=== PATIENT | female | born 1960 | race Caucasian/White ===

== ENCOUNTER 2017-01-20 08:32 | Outpatient (CLI) ==
[2014-02-06 16:38] VITALS: BMI 22.0
[2017-01-20 08:52] LABS: BASOPHILS # (AUTO) 0.1 K/uL (0-0.2); BASOPHILS % (AUTO) 1.1 % (0.0-3.0); EOSINOPHILS # (AUTO) 0.3 K/ul (0.0-0.7); EOSINOPHILS % (AUTO) 7.5 % (0.0-7.0); HEMATOCRIT 39.5 % (37.0-47.0); HEMOGLOBIN 13.5 g/dl (12.0-16.0); LYMPHOCYTES # (AUTO) 2.1 K/uL (0.60-3.4); LYMPHOCYTES % (AUTO) 46.9 (10.0-50.0); MEAN CORPUSCULAR HEMOGLOBIN 32.2 pg (27.0-31.0); MEAN CORPUSCULAR HGB CONC 34.2 (31.8-35.4); MEAN CORPUSCULAR VOLUME 94.3 fl (81.0-99.0); MONOCYTES # (AUTO) 0.3 K/uL (0.4-2.0); MONOCYTES % (AUTO) 6.2 (0-10); NEUTROPHILS # (AUTO) 1.7 K/ul (2.0-6.9); NEUTROPHILS % (AUTO) 38.3; PLATELET COUNT 207 10^3/uL (140-440); RED BLOOD COUNT 4.19 10^6/ul (4.20-5.40); WHITE BLOOD COUNT 4.52 K/ul (4.6-10.2)
[2017-01-20 09:35] LABS: ALBUMIN 3.6 g/dL (3.4-5.0); ALBUMIN/GLOBULIN RATIO 0.97; ANION GAP 12.1; BILIRUBIN,TOTAL 0.47 mg/dL (0.00-1.20); BUN/CREATININE RATIO 14.1; CALCIUM 9.3 mg/dL (8.2-10.2); CREATININE 0.78 mg/dL (0.60-1.30); POTASSIUM 4.1 mmol/L (3.5-5.10); TOTAL PROTEIN 7.3 g/dL (6.4-8.2)
== END 2017-01-20 08:33 | disposition home or self-care (01) ==
LOC: LAB 08:32
PROVIDERS: ATTEND Nurse Practitioner Family
DX: E78.5 Hyperlipidemia, unspecified (principal); F41.1 Generalized anxiety disorder; I10 Essential (primary) hypertension
CPT/HCPCS: 36415; 80053; 80061; 84443; 85025

== ENCOUNTER 2017-05-13 08:27 | Day surgery (SDC) ==
[2014-02-06 16:38] VITALS: BMI 22.0
[2017-05-13] MEDS ORDERED: VERSED ONE (10:15)
[2017-05-13] MEDS ORDERED: DIPRIVAN 20 ML VIAL IVP ONE (10:15)
[2017-05-13 11:53] VITALS: BP 147/83; TEMP 97.4
--- NOTE | 2017-05-14 07:09 | OP ---
INDICATIONS FOR PROCEDURE: 57-year-old female presents for colonoscopy examination. She has a remote history of colon polyps. Her last colonoscopy was 7 years ago. MEDICATIONS: SEE ANESTHESIA NOTES. PROCEDURE: COLONOSCOPY, SNARE POLYPECTOMY. REPORT: The risks, benefits, alternatives and limitations were discussed in detail with the patient. Informed consent was obtained. After adequate sedation was achieved, a digital rectal exam revealed good tone, no masses. The colonoscope was introduced into the rectum and advanced under direct visual guidance to the cecum. The cecum was identified by the appendiceal orifice and IC valve. In the cecal area there were two 4 to 5 mm diminutive polyps. Both of these were destroyed using a hot snare. I then slowly withdrew the scope in a circumferential manner examining the mucosa quite carefully. I looked on the proximal and distal side of folds and flexures as best as possible. In the ascending colon and beginning at the hepatic flexure , there were two polyps about 5 mm to 6 mm size, both sessile. Both of these were removed by hot snare technique. Withdrawing the scope further revealed an 8 mm sessile polyp in the proximal transverse colon. This was removed by snare technique. In the sigmoid, there was a moderate amount of small mouth diverticula scattered throughout. In the very distal sigmoid there was a diminiutive 3 or 4 mm polyp that I destroyed using a snare. No other abnormalities noted. On retroflex view of the anal canal there was an anal skin tag. The prep was good. The withdrawal time is 16 minutes and 31 seconds. The patient tolerated the procedure well with stable vital signs and pulse oximetry throughout. IMPRESSION: 1. SIX (6) POLYPS REMOVED OR DESTROYED ABOVE. 2. SIGMOID DIVERTICULOSIS. 3. SMALL ANAL SKIN TAG. RECOMMENDATIONS: 1. High fiber diet. 2. Office visit as needed. 3. Await polyp pathology. If everything is benign as expected, I recommend repeat colonoscopy examination again in 3 years, sooner if signs or symptoms would indicate otherwise. CC: KARISSA DIXON, [facility]
== END 2017-05-13 12:00 | disposition home or self-care (01) ==
LOC: SURG 08:27
PROVIDERS: ATTEND Internal Medicine Gastroenterology
DX: Z09 Encounter for follow-up examination after completed treatment for conditions other than malignant neoplasm (principal); Z86.010 Personal history of colon polyps; D12.2 Benign neoplasm of ascending colon; D12.3 Benign neoplasm of transverse colon; K63.5 Polyp of colon; K57.30 Diverticulosis of large intestine without perforation or abscess without bleeding; K64.4 Residual hemorrhoidal skin tags

== ENCOUNTER 2017-06-23 08:37 | Outpatient (CLI) ==
[2014-02-06 16:38] VITALS: BMI 22.0
[2017-06-23 09:07] LABS: BASOPHILS # (AUTO) 0.1 K/uL (0-0.2); EOSINOPHILS # (AUTO) 0.3 K/ul (0.0-0.7); EOSINOPHILS % (AUTO) 6.1 % (0.0-7.0); HEMATOCRIT 38.5 % (37.0-47.0); HEMOGLOBIN 13.2 g/dl (12.0-16.0); IMMATURE GRANULOCYTE % (AUTO) 0.2 % (0.0-5.0); LYMPHOCYTES # (AUTO) 2.2 K/uL (0.60-3.4); LYMPHOCYTES % (AUTO) 44.9 (10.0-50.0); MEAN CORPUSCULAR HEMOGLOBIN 32.3 pg (27.0-31.0); MEAN CORPUSCULAR HGB CONC 34.3 (31.8-35.4); MEAN CORPUSCULAR VOLUME 94.1 fl (81.0-99.0); MONOCYTES # (AUTO) 0.3 K/uL (0.4-2.0); MONOCYTES % (AUTO) 6.7 (0-10); NEUTROPHILS % (AUTO) 41.1; PLATELET COUNT 217 10^3/uL (140-440); RED BLOOD COUNT 4.09 10^6/ul (4.20-5.40); WHITE BLOOD COUNT 4.92 K/ul (4.6-10.2)
[2017-06-23 09:51] LABS: ALBUMIN 3.4 g/dL (3.4-5.0); ALBUMIN/GLOBULIN RATIO 0.83; ANION GAP 12.5; BILIRUBIN,TOTAL 0.45 mg/dL (0.00-1.20); BUN/CREATININE RATIO 14.1; CALCIUM 9.5 mg/dL (8.2-10.2); CHOL/HDL RATIO 4.3 (4.5-5.5); CREATININE 0.78 mg/dL (0.60-1.30); POTASSIUM 4.5 mmol/L (3.5-5.10); TOTAL PROTEIN 7.5 g/dL (6.4-8.2)
== END 2017-06-23 08:38 | disposition home or self-care (01) ==
LOC: LAB 08:37
PROVIDERS: ATTEND Nurse Practitioner Family
DX: E78.5 Hyperlipidemia, unspecified (principal); I10 Essential (primary) hypertension; F41.1 Generalized anxiety disorder; E55.9 Vitamin D deficiency, unspecified
CPT/HCPCS: 36415; 80053; 80061; 82306; 84443; 85025

== ENCOUNTER 2017-07-28 16:33 | Outpatient (CLI) ==
[2014-02-06 16:38] VITALS: BMI 22.0
[2017-07-28 16:44] LABS: FLU INTERNAL QC INTERNAL QC VALID
[2017-07-28 16:45] LABS: RAPID FLU A NEGATIVE (NEGATIVE); RAPID FLU B NEGATIVE (NEGATIVE)
== END 2017-07-28 16:34 | disposition home or self-care (01) ==
LOC: LAB 16:33
PROVIDERS: ATTEND Nurse Practitioner Family
DX: R05 Cough (principal); R52 Pain, unspecified; J02.9 Acute pharyngitis, unspecified; R50.9 Fever, unspecified
CPT/HCPCS: 87651; 87804; 87880

== ENCOUNTER 2017-09-02 13:53 | Outpatient (CLI) ==
[2014-02-06 16:38] VITALS: BMI 22.0
== END 2017-09-02 13:54 | disposition home or self-care (01) ==
LOC: LAB 13:53
PROVIDERS: ATTEND Nurse Practitioner Family
DX: R05 Cough (principal); R50.9 Fever, unspecified
CPT/HCPCS: 87502

== ENCOUNTER 2018-08-27 21:15 | Emergency (ER) ==
[2018-08-27 21:26] VITALS: BP 167/102; TEMP 98.7; BMI 22.1
[2018-08-27] MEDS ORDERED: DUONEB NEB STA (21:40)
--- NOTE | 2018-08-27 21:40 | ED.PDOC ---
General ED Provider: Dr. MAXIM JACOBSON MD Chief Complaint: Cough Stated Complaint: cough pleuritic right sided pain. . Time Seen by Physician: 21:25 Mode of Arrival: Walk-In Information Source: Patient, Family Exam Limitations: No limitations Primary Care Provider: KARISSA DIXON Nursing and Triage Documentation Reviewed and Agree: Yes Does patient meet sepsis criteria?: No If yes, has appropriate treatment been initiated?: Yes System Inflammatory Response Syndrome: Not Applicable Sepsis Protocol: For patient's 13 years and over: Temp is 96.8 and below OR 101 and greater Pulse >90 BPM Resp >20/minute Acutely Altered Mental Status Are patient's symptoms suggestive of a new infection, such as: -Pneumonia -Skin, Soft Tissue -Endocarditis -UTI -Bone, Joint Infection -Implantable Device -Acute Abdominal Infection -Wound Infection -Meningitis -Blood Stream Catheter Infection -Unknown Respiratory Complaint Exam - Respiratory Complaint/Exam Symptoms Are: Still present Timing: Constant Initial Severity: Mild Current Severity: Mild Location: Chest Aggravating: Reports: Deep breaths Alleviating: Reports: Upright position Associated Signs and Symptoms: Reports: Chest pain Related Surgical History: Reports: None Pulmonary Embolism Risk Factors: None Cardiac Risk Factors: Reports: Smoking Pseudomonas Risk Factors: Reports: None Tuberculosis Risk Factors: Reports: None Home Oxygen Use: No Recent Stress Test: No Recent Echo/LV Function: No Current Antibiotic Use: Yes (doxy 1 week) Respiratory Distress: Mild Inadequate Respiratory Effort: No Dysphagia Present: No Stridor Present: No JVD Present: No Grunting Respirations: No Kussmaul Respirations: No Differential Diagnoses: COPD Exacerbation, Pneumonia Review of Systems - Review Of Systems Constitutional: Reports: No symptoms Eyes: Reports: No symptoms Ears, Nose, Mouth, Throat: Reports: No symptoms Respiratory: Reports: No symptoms Cardiac: Reports: Chest pain (right sided with inspiration) GI: Reports: No symptoms : Reports: No symptoms Musculoskeletal: Reports: No symptoms Skin: Reports: No symptoms Neurological: Reports: No symptoms Endocrine: Reports: No symptoms Hematologic/Lymphatic: Reports: No symptoms All Other Systems: Reviewed and Negative Past Medical History - Past Medical History Endocrine: Reports: None Cardiovascular: Reports: None Respiratory: Reports: COPD Hematological: Reports: None Gastrointestinal: Reports: None Genitourinary: Reports: None Neuro/Psych: Reports: None Musculoskeletal: Reports: None Cancer: Reports: None Last Menstrual Period: 1993 - Surgical History General Surgical History: Reports: None - Family History Family History: Reports: None - Social History Smoking Status: Current every day smoker, Light tobacco smoker Hx Substance Use: No Alcohol Screening: None - Immunizations Tetanus Shot up to Date: No (unsure) Physical Exam - Physical Exam Appearance: Thin Ill-appearing: Mild Pain Distress: None Eyes: VANGIE, EOMI, Conjunctiva clear ENT: Ears normal, Nose normal, Oropharynx normal Respiratory: Airway patent, Breath sounds clear, Breath sounds equal, Respirations nonlabored Cardiovascular: RRR, Pulses normal, No rub, No murmur GI/: Soft, Nontender, No masses, Bowel sounds normal, No Organomegaly Musculoskeletal: Normal strength, ROM intact, No edema, No calf tenderness Skin: Warm, Dry, Normal color Neurological: Sensation intact Psychiatric: Affect appropriate, Mood appropriate Critical Care Note - Critical Care Note Total Time (mins): 0 Course - Course Hematology/Chemistry: 08/27/18 21:50 Orders, Labs, Meds: Lab Review 08/27/18 21:50 WBC 8.48 RBC 4.09 L Hgb 13.1 Hct 38.7 MCV 94.6 MCH 32.0 H MCHC 33.9 RDW Coeff of Michelle 11.9 Plt Count 221 Immature Gran % (Auto) 0.2 Neut % (Auto) 46.3 Lymph % (Auto) 39.2 [place] % (Auto) 6.1 Eos % (Auto) 7.5 H Baso % (Auto) 0.7 Immature Gran # (Auto) 0.0 Neut # (Auto) 3.9 Lymph # (Auto) 3.3 [place] # (Auto) 0.5 Eos # (Auto) 0.6 Baso # (Auto) 0.1 Orders Category Date Time Status NEBULIZER TREATMENT Stat CARDIO 08/27/18 21:40 Completed CBC W/ AUTO DIFF Stat LAB 08/27/18 21:50 Completed Ipratropium/Albuterol Neb [Duoneb] MEDS 08/27/18 21:40 Discontinued 1 vial NEB ONCE STA Methylprednisolone Sod Succ/Pf [Solu-Medrol 125 mg] MEDS 08/27/18 22:41 Discontinued 125 mg IM ONCE STA CXR [CHEST, 2 VIEWS PA & LAT] Stat RADS 08/27/18 21:39 Completed Medications Discontinued Medications Generic Name Dose Route Start Last Admin Trade Name Freq PRN Reason Stop Dose Admin Albuterol/Ipratropium 1 vial 08/27/18 21:40 08/27/18 21:50 Duoneb NEB 08/27/18 21:41 1 vial ONCE STA Administration Methylprednisolone Sodium Succinate 125 mg 08/27/18 22:41 08/27/18 22:49 Solu-Medrol 125 Mg IM 08/27/18 22:42 125 mg ONCE STA Administration Vital Signs: Temp Pulse Resp BP Pulse Ox 08/27/18 21:17 98.7 F 89 20 167/102 H 94 L Departure - Departure Time of Disposition: 23:38 Disposition: HOME SELF-CARE Discharge Problem: Tracheobronchitis Instructions: Acute Bronchitis (ED) Condition: Stable Pt referred to PMD for follow-up: Yes IPMP verified?: No Prescriptions: Prednisone 20 mg PO DAILYWM 5 Days #5 tablet NS Allergies/Adverse Reactions: Allergies lisinopril Allergy (Mild, Verified 08/27/18 21:26) Cough Home Medications: Ambulatory Orders Clonidine HCl 0.1 mg PO DAILY 08/27/18 Prednisone 20 mg PO DAILYWM 5 Days #5 tablet NS 08/27/18 Transfer Form Completed: No Disposition Discussed With: Patient, Family
--- NOTE | 2018-08-27 22:36 | DI ---
EXAM: Two-view chest HISTORY: Cough COMPARISON: None. FINDINGS: The heart is normal in size. Atherosclerotic changes are seen involving the aortic arch. The lungs are hyperinflated with benign granulomatous change. There is minimal atelectasis or scarri ng within the lingula. IMPRESSION: Emphysematous changes with benign granulomatous change. Minimal atelectasis versus scarring seen within the lingula
[2018-08-27] MEDS ORDERED: SOLU-MEDROL 125 MG IM STA (22:41)
== END 2018-08-27 23:51 | disposition home or self-care (01) ==
LOC: ED 21:15
DX: J40 Bronchitis, not specified as acute or chronic (principal); F17.210 Nicotine dependence, cigarettes, uncomplicated
CPT/HCPCS: 36415; 85025; 94640; 96372; 99283

== ENCOUNTER 2018-10-13 19:03 | Emergency (ER) | payer MEDICAID, OTHER ==
[2018-10-13 19:08] VITALS: TEMP 98.2; BMI 22.9
[2018-10-13] MEDS ORDERED: SODIUM CHLORIDE 1,000 ML IV STA (19:12)
--- NOTE | 2018-10-13 19:21 | ED.PDOC ---
General ED Provider: Dr. RAGHU CHANDRA Chief Complaint: Back Pain Stated Complaint: Patient is a 58 year old female with a history of COPD who comes to the ER with complains of mid back pain that started yesterday went away then today started having pain to left side and left chest tightness. She feels like she has to take deep breaths frequently. Denies any vomiting or diaphoresis but has been nauseated. Time Seen by Physician: 19:15 Mode of Arrival: Walk-In Information Source: Patient Exam Limitations: No limitations Primary Care Provider: KARISSA DIXON Nursing and Triage Documentation Reviewed and Agree: Yes Does patient meet sepsis criteria?: No System Inflammatory Response Syndrome: Not Applicable Sepsis Protocol: For patient's 13 years and over: Temp is 96.8 and below OR 101 and greater Pulse >90 BPM Resp >20/minute Acutely Altered Mental Status Are patient's symptoms suggestive of a new infection, such as: -Pneumonia -Skin, Soft Tissue -Endocarditis -UTI -Bone, Joint Infection -Implantable Device -Acute Abdominal Infection -Wound Infection -Meningitis -Blood Stream Catheter Infection -Unknown Cardiovascular Complaint Exam - Chest Pain Complaint/Exam Onset: Gradual Duration: 1 day Symptoms Are: Still present Timing: Intermittent Initial Severity: Severe Current Severity: None Location: Reports: Left lateral Pain Radiates: Reports: Back Character: Reports: Tightness, Sharp Aggravating: Reports: None Alleviating: Reports: Spontaneous resolution Associated Signs and Symptoms: Reports: Nausea. Denies: Diaphoresis, Vomiting, Fever, Palpitations, Cough, Hemoptysis, Back pain, Abdominal pain, Dizziness, Short of air, Calf pain, Calf swelling Related History: Denies: Similar episode Related Surgical History: Reports: None History of Healthcare-Acquired Pneumonia: Reports: No AMI/ACS Risk Factors: Reports: Family history, Smoking Recent Stress Test: No Recent Echo/LV Function: No JVD Present: No Subcutaneous Emphysema Present: No Diminshed Breath Sounds: No Reproducible Chest Wall Pain: No Bilateral Pulses Present: No Unequal Pulses Noted: No Review of Systems - Review Of Systems Constitutional: Reports: No symptoms Eyes: Reports: No symptoms Ears, Nose, Mouth, Throat: Reports: No symptoms Respiratory: Reports: No symptoms Cardiac: Reports: Chest pain GI: Reports: Nausea : Reports: No symptoms Musculoskeletal: Reports: Back pain Skin: Reports: No symptoms Neurological: Reports: Anxiety Endocrine: Reports: No symptoms Hematologic/Lymphatic: Reports: No symptoms All Other Systems: Reviewed and Negative Past Medical History - Past Medical History Endocrine: Reports: None Cardiovascular: Reports: Hypertension Respiratory: Reports: COPD Hematological: Reports: None Gastrointestinal: Reports: None Genitourinary: Reports: Kidney stones Neuro/Psych: Reports: Anxiety, Depression Musculoskeletal: Reports: Arthritis Cancer: Reports: Unknown Last Menstrual Period: none - Surgical History General Surgical History: Reports: Hysterectomy, Appendectomy, Other (blood clot on brain 1991) - Family History Family History: Reports: Heart - Social History Smoking Status: Current every day smoker, Light tobacco smoker Hx Substance Use: No Alcohol Screening: None Physical Exam - Physical Exam Appearance: Well-appearing, No pain distress, Well-nourished Ill-appearing: None Pain Distress: None Eyes: VANGIE, EOMI, Conjunctiva clear ENT: Ears normal, Nose normal, Oropharynx normal Respiratory: Airway patent, Breath sounds clear, Breath sounds equal, Respirations nonlabored Cardiovascular: RRR, Pulses normal, No rub, No murmur GI/: Soft, Nontender, No masses, Bowel sounds normal, No Organomegaly Musculoskeletal: Normal strength, ROM intact, No edema, No calf tenderness Skin: Warm, Dry, Normal color Neurological: Sensation intact, Motor intact, Reflexes intact, Cranial nerves intact, Alert, Oriented Psychiatric: Affect appropriate, Anxious Interpretation - EKG Interpretation Time of EKG #1: 19:25 Rate: Normal Rhythm: Sinus Moore: Left ST Segment: Normal Interpretation: old septal infact Critical Care Note - Critical Care Note Total Time (mins): 35 Course - Course Hematology/Chemistry: 10/13/18 19:23 10/13/18 19:23 Orders, Labs, Meds: Lab Review 10/13/18 10/13/18 10/13/18 19:23 19:23 19:23 WBC 5.91 RBC 3.63 L Hgb 11.8 L Hct 34.5 L MCV 95.0 MCH 32.5 H MCHC 34.2 RDW Coeff of Michelle 12.7 Plt Count 196 Immature Gran % (Auto) 0.2 Neut % (Auto) 38.4 Lymph % (Auto) 44.5 [place] % (Auto) 8.8 Eos % (Auto) 7.3 H Baso % (Auto) 0.8 Immature Gran # (Auto) 0.0 Neut # (Auto) 2.3 Lymph # (Auto) 2.6 [place] # (Auto) 0.5 Eos # (Auto) 0.4 Baso # (Auto) 0.1 D-Dimer (Manual) 350.19 Sodium 141.6 Potassium 4.10 Chloride 108.3 H Carbon Dioxide 26.0 Anion Gap 11.40 BUN 10.1 Creatinine 0.64 Estimated GFR (MDRD) 95.00 BUN/Creatinine Ratio 15.78 Glucose 118.1 H Calcium 9.11 Total Bilirubin 0.28 AST 56.0 H ALT 55.9 H Alkaline Phosphatase 78.8 Total Creatine Kinase 48.8 Troponin I < 0.012 Total Protein 7.34 Albumin 3.94 Globulin 3.40 Albumin/Globulin Ratio 1.15 10/13/18 22:21 WBC RBC Hgb Hct MCV MCH MCHC RDW Coeff of Michelle Plt Count Immature Gran % (Auto) Neut % (Auto) Lymph % (Auto) [place] % (Auto) Eos % (Auto) Baso % (Auto) Immature Gran # (Auto) Neut # (Auto) Lymph # (Auto) [place] # (Auto) Eos # (Auto) Baso # (Auto) D-Dimer (Manual) Sodium Potassium Chloride Carbon Dioxide Anion Gap BUN Creatinine Estimated GFR (MDRD) BUN/Creatinine Ratio Glucose Calcium Total Bilirubin AST ALT Alkaline Phosphatase Total Creatine Kinase Troponin I < 0.012 Total Protein Albumin Globulin Albumin/Globulin Ratio Orders Category Date Time Status EKG-(ED ONLY) Stat CARDIO 10/13/18 19:12 Completed ED INFRASTRUCTURE ADMINISTRATOR APPLIED .ONCE EMERGENCY 10/13/18 19:12 Active ED IV/MEDIPORT/POWERPORT .ONCE EMERGENCY 10/13/18 19:12 Active CBC W/ AUTO DIFF Stat LAB 10/13/18 19:23 Completed COMPREHENSIVE METABOLIC PANEL Stat LAB 10/13/18 19:23 Completed CREATINE KINASE Stat LAB 10/13/18 19:23 Completed D-DIMER Stat LAB 10/13/18 19:23 Completed TROPONIN I Stat LAB 10/13/18 19:23 Completed TROPONIN I Stat LAB 10/13/18 22:21 Completed 0.9 % Sodium Chloride [Saline Flush] MEDS 10/13/18 19:12 Ordered 1 syr IVF PRN PRN Sodium Chloride 0.9% [Sodium Chloride] 1,000 ml MEDS 10/13/18 19:12 Active IV 125 mls/hr CHEST, 1V AP ONLY Stat RADS 10/13/18 19:12 Completed Medications Generic Name Dose Route Start Last Admin Trade Name Freq PRN Reason Stop Dose Admin Sodium Chloride 1,000 mls @ 125 mls/hr 10/13/18 19:12 10/13/18 19:29 Sodium Chloride IV 10/14/18 03:11 125 mls/hr .Q8H STA Administration Sodium Chloride 1 syr 10/13/18 19:12 Saline Flush IVF PRN PRN To flush IV Vital Signs: Temp Pulse Resp BP Pulse Ox 10/13/18 20:53 67 20 96 10/13/18 20:06 72 22 152/93 H 96 10/13/18 19:03 98.2 F 79 18 163/91 H 95 HUGH Risk Score Age >/= 65: No >/= 3 CAD Risk Factors: No Known CAD (Stenosis >/= 50%): No ASA Use in Past 7 Days: No Severe Angina (>/= 2 episodes in 24 hours): Yes EKG ST Changes >/= 0.5mm: No Postive Cardiac Marker: No HUGH Total Score: 1 HUGH Risk Score: Risk Score Odds of by 30D 0 0.1 (0.1-0.2) 1 0.3 (0.2-0.3) 2 0.4 (0.3-0.5) 3 0.7 (0.6-0.9) 4 1.2 (1.0-1.5) 5 2.2 (1.9-2.6) 6 3.0 (2.5-3.6) 7 4.8 (3.8-6.1) Departure - Departure Time of Disposition: 23:26 Disposition: HOME SELF-CARE Discharge Problem: Backache, Chest wall pain Instructions: Costochondritis (ED) Condition: Stable Pt referred to PMD for follow-up: Yes IPMP verified?: No Additional Instructions: Take pain medications as prescribed Follow up with PCP in 3 days Prescriptions: Tramadol HCl [Ultram] 50 mg PO Q6H PRN #10 tablet PRN Reason: Severe Pain Allergies/Adverse Reactions: Allergies lisinopril Allergy (Mild, Verified 10/13/18 19:08) Cough Home Medications: Ambulatory Orders Clonidine HCl 0.1 mg PO DAILY 08/27/18 Tramadol HCl [Ultram] 50 mg PO Q6H PRN #10 tablet 10/13/18 Disposition Discussed With: Patient, Family
[2018-10-13 20:08] VITALS: BP 152/93
--- NOTE | 2018-10-13 21:01 | DI ---
EXAM: One-view chest HISTORY: Chest pain TECHNIQUE: Single frontal view the chest was obtained. Comparison 08/27/2018. FINDINGS: The heart is normal size. Lungs are clear. The pulmonary vasculature appears normal. Th e costophrenic angles are sharp. IMPRESSION: No active cardiopulmonary disease.
== END 2018-10-13 23:00 | disposition home or self-care (01) ==
LOC: ED 19:03
DX: M54.9 Dorsalgia, unspecified (principal); R07.89 Other chest pain; F17.210 Nicotine dependence, cigarettes, uncomplicated; I10 Essential (primary) hypertension; J44.9 Chronic obstructive pulmonary disease, unspecified
CPT/HCPCS: 36415; 80053; 82550; 84484; 85025; 85379; 93005; 93010; 96360; 99283

== ENCOUNTER 2018-10-21 10:03 | Outpatient (CLI) ==
--- NOTE | 2018-10-21 10:57 | DI ---
EXAM: Three views of the left wrist. History: Left wrist pain. Findings: No acute fracture or dislocation. No abnormal calcifications or radiopaque foreign bodies . Joint spaces are relatively preserved. No erosive osseous changes. Impression: Unremarkable exam
== END 2018-10-21 10:04 | disposition home or self-care (01) ==
LOC: RAD 10:03
PROVIDERS: ATTEND Nurse Practitioner Family
DX: M25.532 Pain in left wrist (principal)

== ENCOUNTER 2019-01-22 08:17 | Outpatient (CLI) | END 2019-01-22 08:18 | disposition home or self-care (01) | LOC: LAB 08:17 | PROVIDERS: ATTEND Nurse Practitioner Family | DX: D64.9 Anemia, unspecified (principal); F41.1 Generalized anxiety disorder; I10 Essential (primary) hypertension; E55.9 Vitamin D deficiency, unspecified | CPT/HCPCS: 36415; 80053; 80061; 82306; 85025 ==

== ENCOUNTER 2019-02-03 08:33 | Outpatient (CLI) ==
--- NOTE | 2019-02-03 11:01 | MRI ---
EXAM: MRI left wrist without contrast. HISTORY: Hit lateral wrist 4 months ago. Knot and redness on lateral wrist. Pain and fall. Painfu l abduction of thumb. No left wrist surgery reported.. TECHNIQUE: Using a local extremity coil on a high field strength magnet multiplanar multisequence MR I was performed of the left wrist without intravenous or intra-articular gadolinium contrast.. COMPARISON: Three-view plain film examination left wrist 10/21/2018 FINDINGS: The alignment of the left wrist shows no dislocation. Minimal dorsal subluxation of the l eft distal ulna with respect to the sigmoid notch. Wrist held in pronation. No scapholunate or luno triquetral joint space widening. No bone erosions. There is some confluent bone marrow edema over t he radial styloid. Somewhat linear low T1 signal intensity corresponding which may reflect an area o f healing nondisplaced fracture with bone marrow contusion. There is additionally subchondral remode ling with cyst formation eccentric over the ulnar sided aspect of the proximal lunate. Mild radiocar pal joint osteoarthrosis. Mild osteoarthrosis scaphoid trapezium trapezoid articulation and first ca rpometacarpal joint as well as piso triquetral articulation. Trace fluid left distal radioulnar join t. Central triangular fibrocartilage disc grossly intact. The carpal tunnel and its contents as well as overlying flexor retinaculum intact. Some mild edema a long the carpal tunnel.. There is tenosynovitis extensor compartment I. Associated tendinosis . Ad ditionally, at the radiocarpal joint space level there is high-grade partial/near full-thickness tear ing of both the extensor pollicis brevis and abductor pollicis longus tendons. I do not see definiti ve tendinous retraction subsequent to full-thickness disruption. Extensor compartments I I - inta ct. Prominent volar radial recess verse tiny synovial/ganglion cyst formation. IMPRESSION: Confluent bone marrow edema over the radial styloid. Appearance suspicious for subacute healing nondisplaced fracture with bone marrow contusion. Subchondral remodeling with cyst formation eccentric over the ulnar sided aspect of the proximal bryce te. Correlate clinically for ulnocarpal abutment. Osteoarthrosis as described. Mild edema along the carpal tunnel. Correlate clinically for signs/symptoms of carpal tunnel syndrom e. Extensor compartment I tenosynovitis with associated tendinosis. At the radiocarpal joint space leve l there is high- grade partial/near full-thickness tearing of both the extensor pollicis brevis and abductor pollicis longus tendons. No definitive tendinous retraction subsequent to full-thickness disruption.
== END 2019-02-03 08:34 | disposition home or self-care (01) ==
LOC: RAD 08:33
PROVIDERS: ATTEND Nurse Practitioner Family
DX: M25.532 Pain in left wrist (principal); G89.29 Other chronic pain; M25.572 Pain in left ankle and joints of left foot; Z87.81 Personal history of (healed) traumatic fracture

== ENCOUNTER 2024-10-10 12:54 | Inpatient (IN) ==
[2024-10-10 13:38] LABS: ABG O2 HGB 86.4 % (95-100); ABG PH 7.36 (7.35-7.45); BEecf -3.4 (-2.0-3.0); COHb 4.3 (0.5-1.5); MetHb 1.1 (0-1.5); TCO2 23.2 (19-24); sO2 84.1 % (94-98); tHb 14.2 g/dl (11.7-17.4)
[2024-10-10] MEDS: DECADRON IVP ONE (13:52)
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
[2024-10-10] MEDS: DUONEB NEB STA (13:54)
[2024-10-10 14:05] LABS: OCCULT BLOOD SAMPLE 1 POSITIVE (NEGATIVE)
[2024-10-10 14:17] LABS: BASOPHILS % (AUTO) 0.2 % (0.0-3.0); EOSINOPHILS % (AUTO) 0.2 % (0.0-7.0); HEMATOCRIT 43.5 % (37.0-47.0); HEMOGLOBIN 14.2 g/dl (12.0-16.0); IMMATURE GRANULOCYTE % (AUTO) 0.3 % (0.0-5.0); LYMPHOCYTES % (AUTO) 15.9 (10.0-50.0); MEAN CORPUSCULAR HEMOGLOBIN 31.9 pg (27.0-31.0); MEAN CORPUSCULAR HGB CONC 32.6 (31.8-35.4); MEAN CORPUSCULAR VOLUME 97.8 fl (81.0-99.0); MONOCYTES # (AUTO) 0.4 K/uL (0.4-2.0); MONOCYTES % (AUTO) 7.3 (0-10); NEUTROPHILS # (AUTO) 4.6 K/ul (2.0-6.9); NEUTROPHILS % (AUTO) 76.1 % (42.2-75.2); PLATELET COUNT 134 10^3/uL (140-440); RDW COEFFICIENT OF VARIATION 12.7 % (11.6-14.8); RED BLOOD COUNT 4.45 10^6/ul (4.20-5.40); WHITE BLOOD COUNT 5.99 K/ul (4.6-10.2)
[2024-10-10 14:27] LABS: ALANINE AMINOTRANSFERASE 17.8 U/L (0-35); ALBUMIN 3.9 g/dL (3.5-5.0); ALKALINE PHOSPHATASE 67.5 U/L (53-141); ASPARTATE AMINO TRANSFERASE 34.5 U/L (14-36); BILIRUBIN,TOTAL 0.26 mg/dL (0.2-1.3); BLOOD UREA NITROGEN 26.6 mg/dL (7-17); CALCIUM 9.07 mg/dL (8.4-10.2); CARBON DIOXIDE 28.1 mmol/L (22-30.0); CHLORIDE 102.6 mmol/L (98-107); CREATININE 1.18 mg/dL (0.60-1.30); GLUCOSE 102.2 mg/dL (74-106); POTASSIUM 4.31 mmol/L (3.5-5.1); TOTAL PROTEIN 7.08 g/dL (6.3-8.2)
[2024-10-10] MEDS: VISIPAQUE 320 MG/ML 100ML IVP ONE (14:40)
--- NOTE | 2024-10-10 15:49 | CT ---
EXAM: CT ABDOMEN AND PELVIS WITH CONTRAST HISTORY: Diarrhea and rectal bleeding. TECHNIQUE: Contiguous axial tomographic sections were obtained from the dome of the diaphragm through the ischial tuberosities following the administration of iodinated intravenous contrast. Coronal and sagittal reformats were then performed. Automatic exposure control was utilized for dose reduction technique. COMPARISON: None. FINDINGS: LOWER CHEST: Faint micronodular tree-in-bud infiltrates at the right lung base suggesting infectious or inflammatory etiology. There is pectus excavatum deformity. LIVER: There is abnormal diffuse hepatic steatosis. No focal lesion is identified. GALLBLADDER: Nondependent polypoid thickening of the fundus of the gallbladder wall anteriorly measur ing 9 x 5 mm, indeterminate. No evidence of acute or chronic cholecystitis. BILIARY: No intrahepatic or extrahepatic biliary ductal dilatation. PANCREAS: Normal contour and attenuation without focal lesion. Normal caliber main pancreatic duct. SPLEEN: Punctate calcifications in the spleen from previous granulomatous disease. Normal size and co ntour. ADRENALS: Normal size and shape without nodularity. KIDNEYS: Multiple low-density subcentimeter foci are seen in the kidneys, too small to characterize b y CT but statistically benign. Excretion of contrast material into the collecting systems bilaterally . No urinary obstruction. Contrast distal right ureter and urinary bladder. VASCULATURE: Heavy atheromatous calcified noncalcified disease of the abdominal aorta. There is infr arenal ectasia measuring 2.5 cm. High-grade stenosis at the ALY origin suggested. Remaining branch vessels of the abdominal aorta are without significant stenosis. LYMPH NODES: No pathologically enlarged lymph nodes by CT size criteria. PERITONEUM/MESENTERY: No free fluid, free air or mesenteric inflammatory change. No loculated fluid c ollection. BOWEL: No bowel obstruction. The appendix is not seen and therefore not evaluated. No inflammatory ch anges are seen in the right lower quadrant to suggest acute appendicitis. There is severe long segme nt colonic wall thickening beginning at the splenic flexure and extending through the mid to distal s igmoid consistent with long segment colitis. Mild pericolonic stranding. The colon proximal to that level appears unremarkable. URINARY BLADDER: There is mild diffuse generalized urinary bladder wall thickening concerning for cys titis. REPRODUCTIVE: Suspect prior hysterectomy. MUSCULOSKELETAL: No acute bony abnormalities. IMPRESSION: 1. Abnormal exam. Long segment severe colonic wall thickening from the splenic flexure through the m id to distal sigmoid consistent with colitis. Differential considerations include infectious, inflamm atory, and ischemic etiologies. Please correlate clinically. Significant atherosclerotic disease of t he abdominal aorta and iliacs as well as branch vessel origins without evidence of gross SMA occlusio n. The ALY does appear stenotic at its origin but is otherwise patent beyond that. Consider correlat ion with serum lactate level as clinically warranted. No evidence of pneumatosis or portal venous ga s. 2. Focal nodular anterior gallbladder wall thickening possibly polyp, gallbladder wall malignancy not excluded. RECOMMEND further evaluation with dedicated routine outpatient right upper quadrant ultra sound. If indeterminate or not well seen by ultrasound, recommend MRI and/or general surgical referr al electively. 3. Faint infectious or inflammatory infiltrate right lung base. 4. Diffuse hepatic steatosis. 5. Mild generalized bladder wall thickening suggesting mild cystitis. Correlate clinically. All CT scans are performed using dose optimization techniques as appropriate to the performed exam an d include at least one of the following: Automated exposure control, adjustment of the mA and/or kV according t o size, and the use of iterative reconstruction technique.
--- NOTE | 2024-10-10 15:50 | DI ---
EXAM: CHEST RADIOGRAPHS TECHNIQUE: Two views, PA and lateral. HISTORY: Shortness of breath COMPARISON: 07/29/2023 IMPRESSION: The cardiomediastinal silhouette and pulmonary vasculature are grossly unremarkable. Ther e is hyperinflation of the lungs and flattening of the hemidiaphragms consistent with COPD. No focal infiltrate, effusion, or pneumothorax is identified. Left lateral mid lung benign calcified granuloma noted. Multiple EKG leads and clips overlying obscure the chest. Remote left rib fractures noted.
[2024-10-10 16:24] LABS: OCCULT BLOOD SAMPLE 2 POSITIVE (NEGATIVE); OCCULT BLOOD SAMPLE 3 POSITIVE (NEGATIVE)
[2024-10-10 16:26] LABS: BILIRUBIN,URINE Negative (NEGATIVE); CLARITY,URINE Clear (CLEAR); COLOR,URINE Yellow (YELLOW); GLUCOSE, URINE (UA) Negative (NEGATIVE); KETONES,URINE Negative (NEGATIVE); LEUKOCYTE ESTERASE ,URINE Negative (NEGATIVE); NITRITE,URINE Negative (NEGATIVE); PROTEIN,URINE 2+ (NEGATIVE); SQUAMOUS EPITHELIAL CELL,UR NOT PRESENT (0-5); URINE, BLOOD Trace-lysed (NEGATIVE); UROBILINOGEN,URINE 0.2 (0.2)
[2024-10-10 17:30] LABS: SARS COV-2 RNA RAPID NAAT NEGATIVE (NEGATIVE)
[2024-10-10] MEDS: LACTATED RINGERS 1,000 ML IV SCH (18:12)
[2024-10-10] MEDS: DOXYCYCLINE HYCLATE PO SCH (18:19)
[2024-10-10] MEDS: ROCEPHIN 1 GM/50 ML D5W 1 GM/50 ML BAG IV SCH (18:21)
[2024-10-10 18:23] VITALS: BMI 19.5
[2024-10-10] MEDS: PRAVACHOL PO SCH (20:51)
[2024-10-10] MEDS: FLAGYL 500 MG/100 ML 500 MG/100 ML BAG IV SCH (20:52)
[2024-10-10] MEDS: SOLU-MEDROL 40 MG IVP SCH (21:08)
[2024-10-11 05:42] LABS: BASOPHILS % (AUTO) 0.4 % (0.0-3.0); HEMATOCRIT 38.3 % (37.0-47.0); HEMOGLOBIN 12.6 g/dl (12.0-16.0); LYMPHOCYTES # (AUTO) 0.6 K/uL (0.60-3.4); LYMPHOCYTES % (AUTO) 22.7 (10.0-50.0); MEAN CORPUSCULAR HEMOGLOBIN 31.7 pg (27.0-31.0); MEAN CORPUSCULAR HGB CONC 32.9 (31.8-35.4); MEAN CORPUSCULAR VOLUME 96.5 fl (81.0-99.0); MONOCYTES # (AUTO) 0.1 K/uL (0.4-2.0); MONOCYTES % (AUTO) 3.8 (0-10); NEUTROPHILS # (AUTO) 1.9 K/ul (2.0-6.9); NEUTROPHILS % (AUTO) 73.1 % (42.2-75.2); PLATELET COUNT 122 10^3/uL (140-440); RDW COEFFICIENT OF VARIATION 12.7 % (11.6-14.8); RED BLOOD COUNT 3.97 10^6/ul (4.20-5.40); WHITE BLOOD COUNT 2.64 K/ul (4.6-10.2)
[2024-10-11 05:53] LABS: ALANINE AMINOTRANSFERASE 16.9 U/L (0-35); ALBUMIN 3.34 g/dL (3.5-5.0); ASPARTATE AMINO TRANSFERASE 36.2 U/L (14-36); BILIRUBIN,TOTAL 0.2 mg/dL (0.2-1.3); BLOOD UREA NITROGEN 23.7 mg/dL (7-17); CALCIUM 8.71 mg/dL (8.4-10.2); CARBON DIOXIDE 25.8 mmol/L (22-30.0); CHLORIDE 102.9 mmol/L (98-107); CREATININE 0.89 mg/dL (0.60-1.30); GLUCOSE 135.8 mg/dL (74-106); MAGNESIUM 1.65 mg/dL (1.6-2.3); POTASSIUM 4.66 mmol/L (3.5-5.1); SODIUM 133.3 mmol/L (134.5-145); TOTAL PROTEIN 6.16 g/dL (6.3-8.2)
[2024-10-11] MEDS: TOPROL XL PO SCH (08:21)
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
[2024-10-11] MEDS: DUONEB NEB PRN (20:42)
[2024-10-11] MEDS: XANAX PO PRN (20:49)
[2024-10-11] MEDS: PRAVACHOL PO SCH (20:49)
[2024-10-12 05:21] LABS: HEMATOCRIT 37.1 % (37.0-47.0); HEMOGLOBIN 12.2 g/dl (12.0-16.0); IMMATURE GRANULOCYTE % (AUTO) 0.4 % (0.0-5.0); LYMPHOCYTES # (AUTO) 0.7 K/uL (0.60-3.4); LYMPHOCYTES % (AUTO) 13.5 (10.0-50.0); MEAN CORPUSCULAR HEMOGLOBIN 32.3 pg (27.0-31.0); MEAN CORPUSCULAR HGB CONC 32.9 (31.8-35.4); MEAN CORPUSCULAR VOLUME 98.1 fl (81.0-99.0); MONOCYTES # (AUTO) 0.3 K/uL (0.4-2.0); MONOCYTES % (AUTO) 5.2 (0-10); NEUTROPHILS # (AUTO) 3.9 K/ul (2.0-6.9); NEUTROPHILS % (AUTO) 80.9 % (42.2-75.2); PLATELET COUNT 129 10^3/uL (140-440); RDW COEFFICIENT OF VARIATION 12.7 % (11.6-14.8); RED BLOOD COUNT 3.78 10^6/ul (4.20-5.40); WHITE BLOOD COUNT 4.82 K/ul (4.6-10.2)
[2024-10-12 05:36] LABS: ALANINE AMINOTRANSFERASE 16.7 U/L (0-35); ALBUMIN 3.15 g/dL (3.5-5.0); ALKALINE PHOSPHATASE 50.3 U/L (53-141); ASPARTATE AMINO TRANSFERASE 31.3 U/L (14-36); BILIRUBIN,TOTAL 0.13 mg/dL (0.2-1.3); BLOOD UREA NITROGEN 29.5 mg/dL (7-17); CALCIUM 8.51 mg/dL (8.4-10.2); CARBON DIOXIDE 25.6 mmol/L (22-30.0); CHLORIDE 105.7 mmol/L (98-107); CREATININE 0.89 mg/dL (0.60-1.30); GLUCOSE 123.1 mg/dL (74-106); POTASSIUM 4.39 mmol/L (3.5-5.1); TOTAL PROTEIN 5.9 g/dL (6.3-8.2)
--- NOTE | 2024-10-12 11:59 | PCM.PROG ---
Date/Time Seen Date Seen by Provider: 10/12/24 Time Seen by Provider: 08:45 Provider [facility] Chief Complaint Chief Complaint: HYPOXEMIA, COLITIS, COPD Subjective Subjective: Patient states she is breathing better today. Still requiring oxygen. Had been weaned to RA but sat dropped into the 80s while eating breakfast. Placed back on 1L. Sat staying around 93%. No further episodes of diarrhea. Objective Appearance: Positive No Apparent Distress and Alert and Oriented x3 Chest/Lungs: Positive Symmetrical With Equal Breath Sounds and Wheezes (mild expiratory, diminished) Heart: Positive RRR and Pulses Normal GI/: Positive Soft, Nontender, Bowel Sounds Normal and No Distention Musculoskeletal: Positive Not Examined Neurological: Positive Sensation Intact, Motor intact, Alert and Oriented Vital Signs Vital Signs: Vital Signs: Last 24 Hours 10/11/24 12:51 10/11/24 14:00 10/11/24 14:00 Temperature 97.2 F L Temperature Source Temporal Artery Scan Pulse Rate 73 Respiratory Rate 19 Blood Pressure 101/66 Blood Pressure Mean 77 Blood Pressure Location Right Arm Blood Pressure Position O2 Sat by Pulse Oximetry 92 L 98 Oxygen Delivery Method Nasal Cannula Nasal Cannula Oxygen Flow Rate 2 Telemetry Type Remote Telemetry Telemetry Monitoring Continues Irregular Telemetry Rate (Approximate) 70-80 BPM Telemetry Heart Rate 71 Telemetry SPO2 EKG TN Interval 0.14 EKG QRS Interval 0.07 Telemetry Strip Reading SR 10/11/24 14:53 10/11/24 18:50 10/11/24 20:00 Temperature Temperature Source Pulse Rate 83 Respiratory Rate Blood Pressure Blood Pressure Mean Blood Pressure Location Blood Pressure Position O2 Sat by Pulse Oximetry 79 L 98 Oxygen Delivery Method Room Air Nasal Cannula Oxygen Flow Rate 2 Telemetry Type Remote Telemetry Telemetry Monitoring Continues Irregular Telemetry Rate (Approximate) Telemetry Heart Rate 79 Telemetry SPO2 93 EKG TN Interval 0.17 EKG QRS Interval 0.04 L Telemetry Strip Reading SR 10/11/24 20:00 10/11/24 21:48 10/12/24 01:00 Temperature 97.9 F Temperature Source Temporal Artery Scan Pulse Rate 72 Respiratory Rate 19 Blood Pressure 132/71 Blood Pressure Mean 91 Blood Pressure Location Right Arm Blood Pressure Position Supine O2 Sat by Pulse Oximetry 97 Oxygen Delivery Method Nasal Cannula Nasal Cannula Oxygen Flow Rate 2 1 Telemetry Type Remote Telemetry Telemetry Monitoring Continues Irregular Telemetry Rate (Approximate) Telemetry Heart Rate 63 Telemetry SPO2 94 EKG TN Interval 0.18 EKG QRS Interval 0.08 Telemetry Strip Reading SR 10/12/24 05:17 10/12/24 06:00 10/12/24 07:00 Temperature 97.3 F L Temperature Source Temporal Artery Scan Pulse Rate 61 Respiratory Rate 17 Blood Pressure 118/69 Blood Pressure Mean 85 Blood Pressure Location Left Arm Blood Pressure Position Supine O2 Sat by Pulse Oximetry 93 L Oxygen Delivery Method Nasal Cannula Room Air Oxygen Flow Rate 1 Telemetry Type Remote Telemetry Telemetry Monitoring Continues Irregular Telemetry Rate (Approximate) 70-80 BPM Telemetry Heart Rate 72 Telemetry SPO2 90 L EKG TN Interval 0.18 EKG QRS Interval 0.04 L Telemetry Strip Reading SR 10/12/24 10:00 10/12/24 10:00 Temperature 98 F Temperature Source Oral Pulse Rate 74 Respiratory Rate 18 Blood Pressure 142/92 H Blood Pressure Mean 108 Blood Pressure Location Right Arm Blood Pressure Position Supine O2 Sat by Pulse Oximetry 93 L Oxygen Delivery Method Nasal Cannula Nasal Cannula Oxygen Flow Rate 2 1 Telemetry Type Telemetry Monitoring Irregular Telemetry Rate (Approximate) Telemetry Heart Rate Telemetry SPO2 EKG TN Interval EKG QRS Interval Telemetry Strip Reading Lab Results Lab Results: Lab Results: Last 24 Hours 10/12/24 04:55 WBC 4.82 RBC 3.78 L Hgb 12.2 Hct 37.1 MCV 98.1 MCH 32.3 H MCHC 32.9 RDW Coeff of Michelle 12.7 Plt Count 129 L Immature Gran % (Auto) 0.4 Neut % (Auto) 80.9 H Lymph % (Auto) 13.5 [place] % (Auto) 5.2 Eos % (Auto) 0.0 Baso % (Auto) 0.0 Neut # (Auto) 3.9 Lymph # (Auto) 0.7 [place] # (Auto) 0.3 L Eos # (Auto) 0.0 Baso # (Auto) 0.0 Immature Gran # (Auto) 0.0 Sodium 135.0 Potassium 4.39 Chloride 105.7 Carbon Dioxide 25.6 Anion Gap 8.09 BUN 29.5 H Creatinine 0.89 Estimated GFR (MDRD) 63.00 BUN/Creatinine Ratio 33.14 Glucose 123.1 H Calcium 8.51 Total Bilirubin 0.13 L AST 31.3 ALT 16.7 Alkaline Phosphatase 50.3 L Total Protein 5.90 L Albumin 3.15 L Globulin 2.75 Albumin/Globulin Ratio 1.14 Additional Comments Additional Comments: I have independently reviewed and interpreted the labs/EKGs/imaging ordered during this hospital stay. I have reviewed outside records that are available in our EMR that pertain to medical stay including imaging/notes/labs from previous visits. Active Medications Active Medications: Medications Generic Name Dose Route Start Last Admin Trade Name Freq PRN Reason Stop Dose Admin Albuterol/Ipratropium 3 ml 10/10/24 17:07 10/11/24 20:42 Ipratropium/Albuterol Vial.Neb NEB 3 ml RTQ6H PRN Administration Wheezing Alprazolam 0.25 mg 10/10/24 18:43 10/11/24 20:49 Alprazolam 0.25 Mg Tablet PO 0.25 mg BID PRN Administration Anxiety Doxycycline Hyclate 100 mg 10/10/24 17:30 10/12/24 08:48 Doxycycline Hyclate 100 Mg Capsule PO 10/13/24 17:29 100 mg Q12HR JANESSA Administration CEFTRIAXONE/D5W 1 GM PREMIX 1 gm in 50 mls @ 100 mls/hr 10/10/24 17:05 10/12/24 09:30 Rocephin 1 Gm/50 Ml D5w IV 10/13/24 17:04 100 mls/hr DAILY JANESSA Administration Metronidazole 500 mg in 100 mls @ 100 mls/hr 10/10/24 17:30 10/12/24 05:33 Flagyl 500 Mg/100 Ml IV 10/13/24 17:29 100 mls/hr Q8HR JANESSA Administration Methylprednisolone Sodium Succinate 40 mg 10/10/24 21:00 10/12/24 05:32 Methylprednisolone Sod Succ/Pf 40 Mg/Ml Vial IVP 40 mg Q8HR JANESSA Administration Metoprolol Succinate 25 mg 10/11/24 09:00 10/12/24 08:48 Metoprolol Succinate 25 Mg Tab.Er.24h PO 25 mg DAILY JANESSA Administration Pravastatin Sodium 20 mg 10/11/24 21:00 10/11/24 20:49 Pravastatin Sodium 20 Mg Tablet PO 20 mg BEDTIME JANESSA Administration Plan Plan: 1. Acute Hypoxic Respiratory Failure - Improving, continues to require 1L at this time, wean oxygen as tolerated, steroids, nebs 2. Acute COPD Exacerbation - see above, doxycycline Q12H 3. Acute Colitis - Improving, no further episodes of diarrhea, C.diff pending, rocephin and flagyl, zofran/reglan prn, diet advanced to regular bland 4. Hyponatremia - Resolved 5. Focal nodular anterior gallbladder wall thickening - recommend ultrasound per CT scan report, will order outpatient upon discharge 6. Hypertension - continue home medications DVT Prophylaxis: Ambulation Review Statement Review Statement: I have personally discussed and reviewed the patient's visit/currently labs /imaging/decision making with Dr. Portillo, my supervising attending. Greater that 50 minutes spent with patient, 50% of the time spent with this patient was devoted to counseling and coordination of care.
[2024-10-13 05:15] VITALS: BP 160/88; PULSE 68; RESP 18; TEMP 97
[2024-10-13 08:39] LABS: BASOPHILS % (AUTO) 0.3 % (0.0-3.0); HEMATOCRIT 38.5 % (37.0-47.0); HEMOGLOBIN 12.6 g/dl (12.0-16.0); IMMATURE GRANULOCYTE # (AUTO) 0.1 (0.0-1.0); LYMPHOCYTES # (AUTO) 0.9 K/uL (0.60-3.4); LYMPHOCYTES % (AUTO) 11.9 (10.0-50.0); MEAN CORPUSCULAR HEMOGLOBIN 31.6 pg (27.0-31.0); MEAN CORPUSCULAR HGB CONC 32.7 (31.8-35.4); MEAN CORPUSCULAR VOLUME 96.5 fl (81.0-99.0); MONOCYTES # (AUTO) 0.2 K/uL (0.4-2.0); MONOCYTES % (AUTO) 2.2 (0-10); NEUTROPHILS # (AUTO) 6.1 K/ul (2.0-6.9); NEUTROPHILS % (AUTO) 84.6 % (42.2-75.2); PLATELET COUNT 153 10^3/uL (140-440); RDW COEFFICIENT OF VARIATION 12.9 % (11.6-14.8); RED BLOOD COUNT 3.99 10^6/ul (4.20-5.40); WHITE BLOOD COUNT 7.25 K/ul (4.6-10.2)
[2024-10-13 08:51] LABS: ALANINE AMINOTRANSFERASE 20.7 U/L (0-35); ALBUMIN 3.41 g/dL (3.5-5.0); ALKALINE PHOSPHATASE 50.2 U/L (53-141); ASPARTATE AMINO TRANSFERASE 27.6 U/L (14-36); BILIRUBIN,TOTAL 0.25 mg/dL (0.2-1.3); BLOOD UREA NITROGEN 26.9 mg/dL (7-17); CALCIUM 8.72 mg/dL (8.4-10.2); CARBON DIOXIDE 24.9 mmol/L (22-30.0); CHLORIDE 105.5 mmol/L (98-107); CREATININE 0.88 mg/dL (0.60-1.30); GLUCOSE 149.7 mg/dL (74-106); POTASSIUM 4.23 mmol/L (3.5-5.1); SODIUM 135.4 mmol/L (134.5-145); TOTAL PROTEIN 6.29 g/dL (6.3-8.2)
--- NOTE | 2024-10-13 09:34 | DCSUM ---
Admission Date Admission Date: 10/10/24 Discharge Date Discharge Date: 10/13/24 Admission Diagnosis Admission Diagnosis: 1. Acute Hypoxic Respiratory Failure 2. Acute COPD Exacerbation 3. Acute Colitis 4. Hyponatremia 5. Focal nodular anterior gallbladder wall thickening 6. Hypertension Discharge Diagnosis Discharge Diagnosis: 1. Acute Hypoxic Respiratory Failure - Unable to wean to RA, d/c on home O2 1-2L continuous 2. Acute COPD Exacerbation - Improving 3. Acute Colitis - Improving, tolerating PO, diarrhea minimal 4. Hyponatremia - Resolved 5. Focal nodular anterior gallbladder wall thickening - Outpatient ultrasound scheduled 6. Hypertension - chronic, stable Hospital Provider Hospital Provider: KETTY ANGELES, [place] [facility] [place] Primary Care Physician Primary Care Physician: SHAE HUGHES Summary of History and Physical Summary of History and Physical: 64-year-old female with PMH of hypertension and hyperlipidemia presenting to the ER for shortness of breath and bloody stools. Patient states she was seen by her primary care provider on Friday after feeling sick 2 to 3 days prior and was prescribed Levaquin. Presented to the ER last night after 2 doses of Levaquin and no improvement. States that Friday she developed bright red bloody stools with diarrhea nausea and 1-2 episodes of vomiting. Denies any fever. Does report productive cough with clear sputum. Denies body aches chills or other symptoms. Chest x-ray was clear. CT scan completed and showed colitis through the mid to distal sigmoid colon. Scan also showed focal nodular anterior gallbladder wall thickening with possibly a polyp unable to exclude malignancy with recommendation of outpatient gallbladder ultrasound. In ER O2 saturation dropped down into the 80s she was placed on 2 L also given breathing treatments. ER staff attempted to wean patient off of oxygen with O2 sat dropping down to 84% per ER provider note. Admitted to [facility] inpatient. Hospital Course Subjective: During stay, patient continued to require oxygen despite multiple weaning attempts to RA with sats dropping to the 80s each time. 3 step oximetry completed and qualification for home oxygen met. Treated for COPD exacerbation with rocephin and doxycyline. Colitis treated with rocephin and flagyl. Bloody diarrhea resolved. Minimal episodes of diarrhea present at discharge. C diff completed and negative. Tolerating PO intake well. Hyponatremia mild initially but resolved with oral hydration. CT scan showed focal nodular anterior gallbladder wall thickening with recommendation of RUQ ultrasound. Ordered outpatient for PCP to follow. Rx sent for rest of abx courses of augmentin, flagyl, and doxycycline. Oxygen required for 1-2lpm continuous. Follow-up with PCP next week. Appearance: Pleasant, No Apparent Distress and Alert HEENT: MMM, Supple and No JVD CVS: No Murmur and No Rubs Abdomen: Soft, Non-Tender and No Distention Respiratory: No Dyspnea Extremities: No Edema Vital Signs: Most Recent Vital Signs Temperature 97 F L 10/13/24 05:13 Temperature Source Temporal Artery Scan 10/13/24 05:13 Temperature Source Infrared 10/10/24 13:08 Pulse Rate 68 10/13/24 05:13 Respiratory Rate 18 10/13/24 05:13 Blood Pressure 160/88 H 10/13/24 05:13 Blood Pressure Mean 112 10/13/24 05:13 Blood Pressure Left Arm 124/72 10/10/24 17:57 Blood Pressure Location Left Arm 10/13/24 05:13 Blood Pressure Position Supine 10/13/24 05:13 O2 Sat by Pulse Oximetry 94 L 10/13/24 05:13 Oxygen Delivery Method Nasal Cannula 10/13/24 05:47 Oxygen Flow Rate 1 10/13/24 05:47 Height 5 ft 8 in 10/11/24 10:47 Weight 58.1 kg 10/11/24 10:47 Telemetry Type Remote Telemetry 10/13/24 07:00 Telemetry Monitoring Continues 10/13/24 07:00 Irregular Telemetry Rate (Approximate) 80-90 BPM 10/12/24 13:00 Telemetry Heart Rate 58 L 10/13/24 07:00 Telemetry SPO2 97 10/13/24 07:00 EKG TN Interval 0.18 10/13/24 07:00 EKG QRS Interval 0.7 H 10/13/24 07:00 Telemetry Strip Reading SR 10/13/24 07:00 Imaging: EXAM: CHEST RADIOGRAPHS IMPRESSION: The cardiomediastinal silhouette and pulmonary vasculature are grossly unremarkable. There is hyperinflation of the lungs and flattening of the hemidiaphragms consistent with COPD. No focal infiltrate, effusion, or pneumothorax is identified. Left lateral mid lung benign calcified granuloma noted. Multiple EKG leads and clips overlying obscure the chest. Remote left rib fractures noted Lab Results Last 24 Hours: 10/13/24 08:35 WBC 7.25 RBC 3.99 L Hgb 12.6 Hct 38.5 MCV 96.5 MCH 31.6 H MCHC 32.7 RDW Coeff of Michelle 12.9 Plt Count 153 Immature Gran % (Auto) 1.0 Neut % (Auto) 84.6 H Lymph % (Auto) 11.9 [place] % (Auto) 2.2 Eos % (Auto) 0.0 Baso % (Auto) 0.3 Neut # (Auto) 6.1 Lymph # (Auto) 0.9 [place] # (Auto) 0.2 L Eos # (Auto) 0.0 Baso # (Auto) 0.0 Immature Gran # (Auto) 0.1 Sodium 135.4 Potassium 4.23 Chloride 105.5 Carbon Dioxide 24.9 Anion Gap 9.23 BUN 26.9 H Creatinine 0.88 Estimated GFR (MDRD) 64.00 BUN/Creatinine Ratio 30.56 Glucose 149.7 H Calcium 8.72 Total Bilirubin 0.25 AST 27.6 ALT 20.7 Alkaline Phosphatase 50.2 L Total Protein 6.29 L Albumin 3.41 L Globulin 2.88 Albumin/Globulin Ratio 1.18 Discharge Instructions Discharge Planning: Discharge Planning > 40 minutes If patient is discharged with left ventricular systolic dysfunction: no Discharged with a beta glenroy? [] If no, why not? [] Discharged with an freddie/arb? [] If no, why not? [] Diagnosis: COPD exacerbation, Colitis Diet: Regular Activity: as tolerated Medications: Augmentin - antibiotic (for COPD and Colitis), start tomorrow (you received today's dose) Doxycycline - antibiotic (for COPD), take tonight Metronidazole - antibiotic (for colitis), take tonight Follow-up with PCP next week You are scheduled for an outpatient ultrasound of your abdomen to view your gallbladder. This is scheduled for 10/19/24 at 9am at [facility]. Please arrive 15 minutes early at main registration. This test requires you to be NPO 8 hours prior. Please call the hospital at [phone] if you have any questions. Discharge Medications: Medications at Discharge (Home Meds & RX) alprazolam 0.25 mg tablet 0.25 mg PO BID PRN anxiety #60 tabs 03/16/21 albuterol sulfate 2.5 mg/3 mL (0.083 %) solution for nebulization 2.5 mg inhalation DIRECTED PRN shortness of air 01/04/22 pravastatin 40 mg tablet 20 mg PO BEDTIME 01/04/22 ipratropium 0.5 mg-albuterol 3 mg (2.5 mg base)/3 mL nebulization soln 3 ml inhalation Q4-6H PRN shortness of breath or wheezing 10/10/24 metoprolol succinate 25 mg tablet,extended release 24 hr 25 mg PO DAILY 10/10/24 amoxicillin 875 mg-potassium clavulanate 125 mg tablet 1 tab PO BID 3 days #6 tabs 10/13/24 doxycycline hyclate 100 mg capsule 100 mg PO Q12HR #4 caps 10/13/24 metronidazole 500 mg tablet 500 mg PO Q8H 3 days #10 tabs 10/13/24 Discharge Plan Discharge Discharge Orders: Discharge Patient (ONCE); Ordered 10/13/24 Ordered By: DEE BUSBY Activity Restrictions/Additional Instructions: Diagnosis: COPD exacerbation, Colitis Diet: Regular Activity: as tolerated Medications: Augmentin - antibiotic (for COPD and Colitis), start tomorrow (you received today's dose) Doxycycline - antibiotic (for COPD), take tonight Metronidazole - antibiotic (for colitis), take tonight Follow-up with PCP next week You are scheduled for an outpatient ultrasound of your abdomen to view your gallbladder. This is scheduled for 10/19/24 at 9am at [facility]. Please arrive 15 minutes early at main registration. This test requires you to be NPO 8 hours prior. Please call the hospital at [phone] if you have any questions. Instructions: COPD (Chronic Obstructive Pulmonary Disease) (GEN), Colitis (ED) Patient Disposition: HOME SELF-CARE Prescriptions: New doxycycline hyclate 100 mg Capsule 100 mg PO Q12HR Qty: 4 0RF amoxicillin-pot clavulanate 875-125 mg tablet 1 tab PO BID 3 Days Qty: 6 0RF Rx Instructions: Start tomorrow metronidazole 500 mg tablet 500 mg PO Q8H 3 Days Qty: 10 0RF Continued albuterol sulfate 2.5 mg /3 mL (0.083 %) solution for nebulization 2.5 mg inhalation DIRECTED PRN (Reason: shortness of air) pravastatin 40 mg tablet 20 mg PO BEDTIME ipratropium-albuterol 0.5 mg-3 mg(2.5 mg base)/3 mL solution for nebulization 3 ml INHALATION Q4-6H PRN (Reason: shortness of breath or wheezing) Patient Comments: [NO ORIGINAL SIG] metoprolol succinate 25 mg tablet extended release 24 hr 25 mg PO DAILY alprazolam 0.25 mg tablet 0.25 mg PO BID PRN (Reason: anxiety) Qty: 60 2RF Discontinued levofloxacin 500 mg tablet 500 mg PO DAILY Did you review [place] [employer] for ALL controlled substances?: No Discussed opioids are addictive and Narcan is available by prescription or from pharmacy.: No Condition: Stable Referrals: SHAE HUGHES [Primary Care Provider] - 10/20/24 1:00 pm
[2024-10-13] MEDS: TYLENOL PO PRN (10:01)
== END 2024-10-13 14:20 | disposition home or self-care (01) | DRG 190 ==
LOC: ED 12:54 → MEDSURG B 17:43
PROVIDERS: ADMIT Hospitalist; ATTEND Nurse Practitioner Family